=== PATIENT | female | born 1995 | race African-American/Black ===

== ENCOUNTER 2018-09-19 19:54 | Emergency (ER) | payer SELFPAY ==
[~2018-09-19] VITALS: Ht 160 cm; Wt 50.0 kg
[~2018-09-19 19:54] MED LIST: EZFE 200200 MG PO; MOTRIN600 MG PO; PERCOCET 5/3251 TA1 PO
[2018-09-19 20:30] VITALS: Ht 160 cm; Wt 50.0 kg
[2018-09-19] MEDS ORDERED: PREDNISONE20 MG PO (21:06)
[2018-09-19] MEDS ORDERED: TORADOL10 MG PO (21:06)
[2018-09-19 22:01] VITALS: BP 106/70
== END 2018-09-19 22:01 | disposition home or self-care (01) ==
LOC: D.ER 19:54
DX: M65.841 Other synovitis and tenosynovitis, right hand (principal); F17.200 Nicotine dependence, unspecified, uncomplicated

== ENCOUNTER 2019-01-09 17:30 | Emergency (ER) | payer SELFPAY ==
[~2019-01-09] VITALS: Ht 160 cm; Wt 50.0 kg
[~2019-01-09 17:30] MED LIST changes: +PREDNISONE20 MG PO; +TORADOL10 MG PO
[2019-01-09 17:41] VITALS: Ht 160 cm; Wt 50.0 kg
[2019-01-09 18:09] LABS: BASOPHILS 0 % (0-2); EOSINOPHILS 0.2 % (0-7); HEMATOCRIT 39.2 % (36.0-48.0); HEMOGLOBIN 13.2 g/dL (12-16); IMMATURE GRANULOCYTES 0.2 % (0-5); LYMPHOCYTES 4.7 % (15-50); MCH 29.4 pg (26.0-34.0); MCHC 33.7 g/dL (31.0-37.0); MCV 87.3 fL (80.0-100.0); MEAN PLATELET VOLUME 10.7 fL (7.4-10.4); MONOCYTES 2.9 % (2-11); PLATELET COUNT 146 10x3/uL (130-400); RBC 4.49 10x6/uL (4.00-5.40); RDW 12.4 % (11.5-14.5); WBC 6.5 10x3/uL (4.8-10.8)
[2019-01-09 18:10] LABS: ALBUMIN 3.9 g/dL (3.4-5.0); ALKALINE PHOSPHATASE 63 U/L (46-116); ALT (SGPT) 14 U/L (10-68); AMYLASE - SERUM 31 U/L (25-115); BILIRUBIN - TOTAL 0.98 mg/dL (0.2-1.3); CALC OSMOLALITY 277 mosm/kg (275-300); CARBON DIOXIDE 22.3 mmol/L (21.0-32.0); CHLORIDE - SERUM 106 mmol/L (98-107); CREATININE - SERUM 0.9 mg/dL (0.6-1.3); GLUCOSE 93 mg/dL (74-106); LIPASE 82 U/L (73-393); PROTEIN - SERUM 7.2 g/dL (6.4-8.2); SODIUM 140 mmol/L (136-145); UREA NITROGEN 10 mg/dL (7-18); eGFR NON AFRICAN AMERICAN 81 mL/min (90-120)
[2019-01-09 18:32] LABS: APPEARANCE CLEAR (CLEAR); BILIRUBIN NEGATIVE (NEGATIVE); COLOR YELLOW (YELLOW); GLUCOSE NEGATIVE (NEGATIVE); HCG URINE NEGATIVE (NEGATIVE); KETONE LARGE mg/dL (NEGATIVE); NITRITE NEGATIVE (NEGATIVE); PROTEIN TRACE mg/dL (NEGATIVE); UROBILINOGEN NORMAL (NORMAL)
[2019-01-09 18:34] LABS: BACTERIA FEW /hpf (NONE SEEN); EPITHELIAL CELLS 0-5 /hpf (0-5); RED CELLS - URINE 0-5 /hpf (0-5); WHITE CELLS - URINE 0-5 /hpf (0-5)
[2019-01-09 18:34] LABS: POTASSIUM - SERUM 2.9 mmol/L (3.5-5.1)
[2019-01-09 18:35] LABS: MUCUS <1+ /lpf (NONE SEEN)
[2019-01-09 18:46] LABS: UDS - AMPHET NEGATIVE QUAL (NEGATIVE); UDS - BARB NEGATIVE QUAL (NEGATIVE); UDS - BENZO NEGATIVE QUAL (NEGATIVE); UDS - COCAINE NEGATIVE QUAL (NEGATIVE); UDS - OPIATE NEGATIVE QUAL (NEGATIVE); UDS - PCP NEGATIVE QUAL (NEGATIVE); UDS - THC POSITIVE QUAL (NEGATIVE)
[2019-01-09] MEDS ORDERED: IMODIUM2 MG PO (18:53)
[2019-01-09] MEDS ORDERED: PHENERGAN25 M1 PO (18:53)
[2019-01-09 21:47] VITALS: BP 103/58
== END 2019-01-09 21:47 | disposition home or self-care (01) ==
LOC: D.ER 17:30
PROVIDERS: Emergency Medicine
DX: K52.9 Noninfective gastroenteritis and colitis, unspecified (principal)

== ENCOUNTER 2019-08-29 18:22 | Emergency (ER) | payer MEDICAID ==
[~2019-08-29] VITALS: Ht 160 cm; Wt 47.7 kg
[~2019-08-29 18:22] MED LIST changes: +IMODIUM2 MG PO; +PHENERGAN25 M1 PO
[2019-08-29 18:34] VITALS: Ht 160 cm; Wt 47.7 kg
[2019-08-29] MEDS ORDERED: DEPO (18:38)
[2019-08-29] MEDS ORDERED: TYLENOL W/CODEI1 TAB PO (19:59)
[2019-08-29] MEDS ORDERED: PHENERGAN25 M1 PO (19:59)
[2019-08-29 20:33] LABS: HCG URINE NEGATIVE (NEGATIVE)
[2019-08-29 20:34] LABS: APPEARANCE CLEAR (CLEAR); BILIRUBIN NEGATIVE (NEGATIVE); COLOR YELLOW (YELLOW); GLUCOSE NEGATIVE (NEGATIVE); KETONE NEGATIVE (NEGATIVE); NITRITE NEGATIVE (NEGATIVE); PROTEIN NEGATIVE (NEGATIVE); UROBILINOGEN NORMAL (NORMAL)
[2019-08-29 20:35] LABS: BACTERIA FEW /hpf (NEGATIVE); EPITHELIAL CELLS 0-5 /hpf (0-5); WHITE CELLS - URINE OCC /hpf (NEGATIVE)
[2019-08-29 20:45] LABS: UDS - AMPHET NEGATIVE QUAL (NEGATIVE); UDS - BARB NEGATIVE QUAL (NEGATIVE); UDS - BENZO NEGATIVE QUAL (NEGATIVE); UDS - COCAINE NEGATIVE QUAL (NEGATIVE); UDS - OPIATE NEGATIVE QUAL (NEGATIVE); UDS - PCP NEGATIVE QUAL (NEGATIVE); UDS - THC POSITIVE QUAL (NEGATIVE)
[2019-08-29 20:50] VITALS: BP 129/81
== END 2019-08-29 20:50 | disposition home or self-care (01) ==
LOC: D.ER 18:22
PROVIDERS: Family Medicine
DX: R51 Headache (principal)